=== PATIENT | male | born 1955 | race Caucasian/White ===

== ENCOUNTER 2024-01-24 13:38 | Observation (INO) | payer BC ==
[~2024-01-24] VITALS: Ht 167.6 cm; Wt 85.7 kg
[2024-01-24 13:43] VITALS: BP 159/82; PULSE 63; RESP 16; TEMP 98.4; O2SAT 99
[2024-01-24 15:21] LABS: BASOPHILS # (AUTO) 0.1 K/uL (0.00-0.22); EOSINOPHILS # (AUTO) 0.3 K/uL (0-0.4); EOSINOPHILS % (AUTO) 3.1 % (0.0-4.0); HEMATOCRIT 43.5 % (36-52); LYMPHOCYTES # (AUTO) 1.9 K/uL (2.0-11.5); LYMPHOCYTES % (AUTO) 20.8 % (20.5-51.1); MEAN CORPUSCULAR HEMOGLOBIN 33 pg (27-31); MEAN CORPUSCULAR HGB CONC 34 g/dL (33-37); MEAN CORPUSCULAR VOLUME 95.8 fL (80-94); MONOCYTES # (AUTO) 0.7 K/uL (0.8-1.0); MONOCYTES % (AUTO) 7.6 % (1.7-9.3); NEUTROPHILS % (AUTO) 67.5 % (42.2-75.2); PLATELET COUNT (AUTO) 274 K/uL (140-450); RED BLOOD CELL COUNT(AUTO) 4.55 MIL/uL (4.20-6.10); RED CELL DISTRIBUTION WIDTH 14.1 % (11.6-13.7); WHITE BLOOD COUNT (AUTO) 8.9 K/uL (4.8-10.8)
[2024-01-24 15:41] LABS: ALANINE AMINOTRANSFERASE 26 U/L (12-78); ALBUMIN 3.8 g/dL (3.4-5.0); ALKALINE PHOSPHATASE 51 U/L (50-136); ANION GAP 9.5 (8-16); ASPARTATE AMINOTRANSFERASE 21 U/L (15-37); CALCIUM 9.7 mg/dL (8.5-10.1); CARBON DIOXIDE 28.1 mmol/L (21-32); CHLORIDE 99 mmol/L (98-107); CREATININE 1.6 mg/dL (0.6-1.3); GLUCOSE 146 mg/dL (74-106); POTASSIUM 3.6 mmol/L (3.5-5.1); SODIUM SERUM 133 mmol/L (136-145); TOTAL BILIRUBIN 0.6 mg/dL (0.0-1.0); TOTAL PROTEIN, SERUM 8.4 g/dL (6.4-8.2); UREA NITROGEN, BLOOD 16 mg/dL (7-18)
[2024-01-24] MEDS ORDERED: ACETAMINOPHEN 325 MG TAB PO PRN (16:50)
[2024-01-24] MEDS ORDERED: HYDROcodone/APAP 5/325 MG 1 TAB TAB PO PRN (16:50)
[2024-01-24] MEDS ORDERED: ONDANSETRON 4 MG/2 ML VIAL IVP PRN (16:50)
[2024-01-24] MEDS ORDERED: LORazepam 2 MG/ML VIAL IVP PRN (16:50)
[2024-01-24] MEDS ORDERED: cefTRIAXone 1,000 MG VIAL ONE (17:14)
[2024-01-24] MEDS ORDERED: ATEN50TA8 PO (19:54)
[2024-01-24] MEDS ORDERED: CHOL200072 PO (19:58)
[2024-01-24] MEDS ORDERED: LISI40TA8 PO (19:58)
[2024-01-24] MEDS ORDERED: ASPI-1822 PO (19:58)
[2024-01-24] MEDS ORDERED: AMLO10TA PO (19:58)
[2024-01-24 20:23] VITALS: BP 140/70; PULSE 54; PULSE 63; RESP 18; TEMP 98.3; O2SAT 96
[2024-01-24] MEDS: METOPROLOL 50 MG TAB PO SCH (21:00)
[2024-01-24] MEDS: LOSARTAN 50 MG TAB PO SCH (21:00)
[2024-01-24] MEDS: FUROSEMIDE 40 MG/4 ML VIAL IVP SCH (21:00)
[2024-01-25] VITALS: BP 138/80; PULSE 55; PULSE 56; RESP 18; TEMP 98; O2SAT 96
[2024-01-25 03:57] VITALS: PULSE 59
[2024-01-25 04:00] VITALS: BP 140/82; PULSE 58; RESP 18; TEMP 98.6; O2SAT 99
[2024-01-25 06:59] LABS: BASOPHILS # (AUTO) 0.1 K/uL (0.00-0.22); BASOPHILS % (AUTO) 1.2 % (0.0-2.0); EOSINOPHILS # (AUTO) 0.3 K/uL (0-0.4); EOSINOPHILS % (AUTO) 3.8 % (0.0-4.0); HEMATOCRIT 39.5 % (36-52); HEMOGLOBIN 13.6 g/dL (12.0-18.0); LYMPHOCYTES # (AUTO) 1.8 K/uL (2.0-11.5); LYMPHOCYTES % (AUTO) 22.9 % (20.5-51.1); MEAN CORPUSCULAR HEMOGLOBIN 33 pg (27-31); MEAN CORPUSCULAR HGB CONC 34 g/dL (33-37); MEAN CORPUSCULAR VOLUME 95.4 fL (80-94); MONOCYTES # (AUTO) 0.7 K/uL (0.8-1.0); MONOCYTES % (AUTO) 8.9 % (1.7-9.3); NEUTROPHILS # (AUTO) 4.9 K/uL (1.8-7.7); NEUTROPHILS % (AUTO) 63.2 % (42.2-75.2); PLATELET COUNT (AUTO) 242 K/uL (140-450); RED BLOOD CELL COUNT(AUTO) 4.14 MIL/uL (4.20-6.10); RED CELL DISTRIBUTION WIDTH 13.9 % (11.6-13.7); WHITE BLOOD COUNT (AUTO) 7.7 K/uL (4.8-10.8)
[2024-01-25 07:02] LABS: ANION GAP 11.3 (8-16); CALCIUM 9.1 mg/dL (8.5-10.1); CARBON DIOXIDE 26.9 mmol/L (21-32); CHLORIDE 102 mmol/L (98-107); CREATININE 1.4 mg/dL (0.6-1.3); GLUCOSE 102 mg/dL (74-106); POTASSIUM 4.2 mmol/L (3.5-5.1); SODIUM SERUM 136 mmol/L (136-145); UREA NITROGEN, BLOOD 14 mg/dL (7-18)
[2024-01-25 08:00] VITALS: BP 140/64; PULSE 58; PULSE 73; RESP 20; TEMP 98.2; O2SAT 100
[2024-01-25] MEDS: ASPIRIN 81 MG TAB.CHEW PO SCH (09:13)
[2024-01-25] MEDS ORDERED: FURO-570 PO (12:52)
[2024-01-25] MEDS ORDERED: HYDR-1098 PO (12:52)
[2024-01-25 17:00] VITALS: BP 153/75; PULSE 63; RESP 18; TEMP 98.1
== END 2024-01-25 18:13 | disposition home or self-care (01) ==
LOC: MED 13:38 → MTU 16:47
PROVIDERS: ADMIT Hospitalist; ATTEND Hospitalist
DX: I16.0 Hypertensive urgency (principal); R60.0 Localized edema; R06.02 Shortness of breath; E78.00 Pure hypercholesterolemia, unspecified; Z79.899 Other long term (current) drug therapy; Z79.82 Long term (current) use of aspirin
CPT/HCPCS: 36415; 71045; 80048; 80053; 83735; 83880; 84484; 85025; 85379; 87081; 93005; 93307; 96365; 96366; 96375; 99285; G0378; J0696; J1940; J7060